=== PATIENT | male | born 1980 | race Caucasian/White ===

== ENCOUNTER 2021-01-25 21:47 | Emergency (ER) | payer MEDICAID ==
[~2021-01-25] VITALS: Ht 170.2 cm; Wt 66.0 kg
[2021-01-26] MEDS ORDERED: BACITRACIN ZINC OINT UDPKT TOP ONE (02:15)
[2021-01-26] MEDS ORDERED: IBUPROFEN 600MG TABLET PO ONE (02:15)
[2021-01-26] MEDS ORDERED: LIDOCAINE HCL/PF 1% 10 MG/ML 5ML VIAL IJ ONE (02:15)
[2021-01-26] MEDS ORDERED: IBUP-2029 MT (03:16)
[2021-01-26 03:17] VITALS: BP 127/71
== END 2021-01-26 03:18 | disposition home or self-care (01) ==
LOC: ER 21:47
DX: S61.412A Laceration without foreign body of left hand, initial encounter (principal); W29.8XXA Contact with other powered hand tools and household machinery, initial encounter; Y93.89 Activity, other specified; Y92.9 Unspecified place or not applicable
CPT/HCPCS: 73130; 99283; J3490; Z7610